=== PATIENT | female | born 1975 | race Caucasian/White ===

== ENCOUNTER 2017-11-22 08:47 | Outpatient (CLI) | payer BC ==
[2017-11-22 09:54] LABS: #Basophils 0.1 thou/uL (0.0-0.2); #Eosinphils 0.1 thou/uL (0.0-0.7); #Lymphocytes 2.2 thou/uL (1.20-3.40); #Monocytes 0.5 thou/uL (0.11-0.59); #Neutrophils 4.1 thou/uL (1.40-6.50); %Basophils 1.3 % (0.0-1.0); %Eosinophils 1.3 % (0.0-10.0); %Lymphocytes 31.7 % (21.0-51.0); %Monocytes 6.9 % (0.0-10.0); %Neutrophils 58.8 % (42.0-75.0); Hemoglobin 12.8 g/dL (12.0-16.0); Mean Corpuscular HGB CONC 33.5 g/dL (32.0-36.0); Mean Corpuscular Hemoglobin 27.9 pg (27.0-31.0); Mean Corpuscular Volume 83.5 fl (81.0-99.0); Mean Platelet Volume 7.2 fL (7.4-10.4); Platelet Count 251 thou/uL (130-400); RBC Distribution Width 11.8 % (11.5-14.5)
[2017-11-22 10:06] LABS: BHCG - Serum Negative (NEGATIVE); Pregs Control Background? CLEAR/WHITE (CLR/WHITE); Pregs Control Bar Appear? YES (CONTROL BAR)
[2017-11-22 10:11] LABS: Anion Gap 11 mmol/L (10-20); BUN (Urea Nitrogen) 16 mg/dL (7.0-18.7); Calc. Creatinine Clearance 0 mL/min (70-130); Calcium 9.4 mg/dL (7.8-10.44); Carbon Dioxide 27 mmol/L (22-29); Chloride 102 mmol/L (98-107); Estimated GFR-MDRD 85; Glucose 101 mg/dL (70-105); Potassium 4.4 mmol/L (3.5-5.1); Sodium 136 mmol/L (136-145)
== END 2017-11-22 08:48 | disposition home or self-care (01) ==
LOC: LABBT 08:47
PROVIDERS: ATTEND Specialist
DX: Z01.812 Encounter for preprocedural laboratory examination (principal); K64.4 Residual hemorrhoidal skin tags; K64.8 Other hemorrhoids
CPT/HCPCS: 80048; 84703; 85025

== ENCOUNTER 2017-11-27 07:01 | Day surgery (SDC) | payer BC ==
[2017-11-22 09:12] VITALS: BMI 36.6
[2017-11-27] MEDS ORDERED: Ketorolac Tromethamine 30 MG/ML VIAL ONE (07:30)
[2017-11-27] MEDS ORDERED: cefOXitin 2 GM, Syringe 1 ML in Sterile Water 10 ML SLOW IVP ONE (07:45)
[2017-11-27] MEDS ORDERED: Lidocaine 2% w/Epinephrine 1:200K 20 ML VIAL ONE (08:56)
[2017-11-27] MEDS ORDERED: Lidocaine 2% Jelly 5 ML TUBE ONE (08:56)
[2017-11-27] MEDS ORDERED: Bupivacaine 0.25% HCL 30 ML VIAL ONE (08:56)
[2017-11-27] MEDS ORDERED: Fentanyl 100 MCG/2 ML VIAL ONE (09:06)
[2017-11-27] MEDS ORDERED: Midazolam HCl 2 mg/2 ml Vial ONE (09:06)
[2017-11-27] MEDS ORDERED: Metoclopramide HCl 10 MG/2 ML VIAL ONE (12:57)
[2017-11-27] MEDS ORDERED: Ondansetron HCl/PF 4 MG/2 ML Vial ONE (12:57)
[2017-11-27] MEDS ORDERED: diphenhydrAMINE 50 MG/ML VIAL ONE (12:57)
[2017-11-27] MEDS ORDERED: Propofol 200 MG/20 ML VIAL ONE (12:57)
[2017-11-27] MEDS ORDERED: Dexamethasone 20 MG/5 ML VIAL ONE (12:57)
[2017-11-27] MEDS ORDERED: Lidocaine 1% PF 5 ML VIAL ONE (12:57)
--- NOTE | 2017-11-27 13:29 | OP ---
DATE OF PROCEDURE: 11/27/2017 PREOPERATIVE DIAGNOSIS: Internal/external hemorrhoids. POSTOPERATIVE DIAGNOSIS: Internal/external hemorrhoids. OPERATION PERFORMED: A 3 column open hemorrhoidectomy. SURGEON: Dr. Sony Fenton ANESTHESIA: General endotracheal. INDICATIONS: The patient is a 42-year-old white female. She presents with internal/external hemorrh oids. OPERATIVE PROCEDURE IN DETAIL: Informed consent was obtained. The patient taken to the operating ro om where general endotracheal anesthesia was obtained with the patient in supine position. She was p laced in dorsal lithotomy using candy cane stirrups. Perianal area was prepped with Betadine and tatiana ped in sterile fashion. Local anesthetic was infiltrated in a 4 quadrant intersphincteric fashion. The local anesthetic used was a combination of lidocaine and Marcaine with epinephrine. A digital in visible examination was performed. There were findings consistent with hemorrhoidal disease was alchidi johnson known and no other abnormalities noted. There were hemorrhoidal complexes noted at the 12 o'cloc k, the 5 o'clock and 8 o'clock radians. The procedure performed at age radian was the same. The complex was grasped with an Allis clamp. Ad ditional local anesthetic was infiltrated. A young shaped incision was created externally and diego ied internally over the sphincter. The hemorrhoidal tissue was dissected internally using the LigaSu re device. The specimen was removed. There were no abnormalities visualized of any these three area s. The defect was then closed using a running locking suture of 3-0 Vicryl. Gelfoam with lidocaine jelly was placed internally. Before closing, it was ensured that each area was hemostatic and each defect was well closed. A dry gauze dressing was placed externally. Mesh pants were placed. There were no complications. The pat ient tolerated the procedure well and was taken to recovery room in stable condition.
== END 2017-11-27 13:28 | disposition home or self-care (01) ==
LOC: SDC 07:01
PROVIDERS: ATTEND Specialist
PROC: 06BY0ZC Excision of Hemorrhoidal Plexus, Open Approach (ICD-10-PCS; principal; 2017-11-27)
DX: K64.8 Other hemorrhoids (principal); K64.4 Residual hemorrhoidal skin tags; N81.6 Rectocele; Z88.0 Allergy status to penicillin; Z98.890 Other specified postprocedural states
CPT/HCPCS: A4216; J0131; J0694; J1885; J2250; J3010; S0020

== ENCOUNTER 2017-12-01 22:32 | Emergency (ER) | payer BC ==
[2017-12-01 23:26] LABS: #Basophils 0.1 thou/uL (0.0-0.2); #Eosinphils 0.1 thou/uL (0.0-0.7); #Lymphocytes 2.3 thou/uL (1.20-3.40); #Monocytes 0.4 thou/uL (0.11-0.59); %Basophils 1.1 % (0.0-1.0); %Eosinophils 1.9 % (0.0-10.0); %Lymphocytes 33.1 % (21.0-51.0); %Monocytes 6.1 % (0.0-10.0); %Neutrophils 57.7 % (42.0-75.0); Mean Corpuscular HGB CONC 34.6 g/dL (32.0-36.0); Mean Corpuscular Hemoglobin 28.8 pg (27.0-31.0); Mean Corpuscular Volume 83.3 fl (81.0-99.0); Mean Platelet Volume 7.9 fL (7.4-10.4); Platelet Count 198 thou/uL (130-400); RBC Distribution Width 11.7 % (11.5-14.5); Red Blood Cell (RBC) Count 4.16 mill/uL (4.20-5.40)
[2017-12-01 23:32] LABS: INR-International Normal Ratio 0.9; Prothrombin Time 12.7 SEC (12.0-14.7)
[2017-12-01] MEDS ORDERED: Lidocaine Viscous Sol 2% 15 ml UD Cup ONE (23:44)
[2017-12-01 23:48] LABS: ALT (SGPT) 24 U/L (8-55); AST (SGOT) 17 U/L (5-34); Albumin 3.7 g/dL (3.5-5.0); Alkaline Phosphatase 43 U/L (40-150); Anion Gap 13 mmol/L (10-20); BUN (Urea Nitrogen) 15 mg/dL (7.0-18.7); Bilirubin, Total 0.3 mg/dL (0.2-1.2); Calc. Creatinine Clearance 0 mL/min (70-130); Calcium 8.7 mg/dL (7.8-10.44); Carbon Dioxide 22 mmol/L (22-29); Chloride 105 mmol/L (98-107); Estimated GFR-MDRD 86; Glucose 117 mg/dL (70-105); Potassium 4.7 mmol/L (3.5-5.1); Protein, Total 6.7 g/dL (6.0-8.3); Sodium 135 mmol/L (136-145)
== END 2017-12-02 01:14 | disposition home or self-care (01) ==
LOC: ERS 22:32
DX: K91.840 Postprocedural hemorrhage of a digestive system organ or structure following a digestive system procedure (principal); K62.5 Hemorrhage of anus and rectum; D50.0 Iron deficiency anemia secondary to blood loss (chronic)
CPT/HCPCS: 80053; 85025; 85610; 86850; 86900; 86901; 99283

== ENCOUNTER 2018-10-15 09:20 | Outpatient (CLI) | payer BC ==
[2018-10-15 11:02] LABS: Hemoglobin 11.9 g/dL (12.0-16.0); Mean Corpuscular HGB CONC 33.5 g/dL (32.0-36.0); Mean Corpuscular Volume 80.4 fL (78.0-98.0); Mean Platelet Volume 7.9 fL (7.4-10.4); Platelet Count 264 thou/uL (130-400); RBC Distribution Width 12.3 % (11.5-14.5); Red Blood Cell (RBC) Count 4.43 mill/uL (4.20-5.40); White Blood Cell (WBC) Count 6.5 thou/uL (4.8-10.8)
[2018-10-15 11:11] LABS: BHCG - Serum Negative (NEGATIVE); Pregs Control Background? CLEAR/WHITE (CLR/WHITE); Pregs Control Bar Appear? YES (CONTROL BAR)
== END 2018-10-15 09:21 | disposition home or self-care (01) ==
LOC: LABBT 09:20
PROVIDERS: ATTEND Obstetrics & Gynecology
DX: Z01.812 Encounter for preprocedural laboratory examination (principal); N39.3 Stress incontinence (female) (male)
CPT/HCPCS: 84703; 85027; 86850; 86900; 86901

== ENCOUNTER 2018-10-16 09:30 | Observation (INO) | payer BC ==
[2018-10-15 09:28] VITALS: BMI 41.1
--- NOTE | 2018-10-15 18:38 | HP ---
REASON FOR ADMISSION: Stress urinary incontinence. SCHEDULED PROCEDURES: Mid urethral sling with Advantage Fit and cystourethroscopy. HISTORY OF PRESENT ILLNESS: Ms. Richard is a 42-year-old well known to my practice for many years. She has stress incontinence by history and exam, and desires surgical management. GLOBAL SECURITY ARCHITECT HISTORY: x5. SAB x1. No history of dysplasia or STDs. The patient reports that she leaks urine when coughs, sneeze, or with intercourse. She has no nocturia. MEDICAL HISTORY: None. SURGICAL HISTORY: Stapled hemorrhoidectomy by Dr. Fenton. ALLERGIES: NONE. MEDICATIONS: Melatonin. SOCIAL HISTORY: Denies tobacco, alcohol, or IV drug use. FAMILY HISTORY: Noncontributory. REVIEW OF SYSTEMS: Noncontributory. PHYSICAL EXAMINATION: GENERAL: White female, 5 foot 5, 239, BMI 40. Blood pressure 122/90. HEENT: Within normal limits. LUNGS: Clear to auscultation bilaterally. HEART: Regular rate and rhythm. ABDOMEN: Soft and nontender. No rebound or guarding. PELVIC: Vulva without lesions. the patient has a hypermobile urethra with minimal cystocele and rectocele present. Cervix is parous. Uterus is anteverted, 4 to 6 weeks size. Adnexa, no masses bilaterally. IMPRESSION: History and exam consistent with pure stress incontinence, status post stapled hemorrhoidectomy. PLAN: Discussed with the patient options. We will proceed with mid urethral sling with [employer]. The patient understands risks and benefits of procedure including bleeding, infection, persistence of stress incontinence, de winifred urge incontinence, erosion, and prolonged catheterization. The patient gives verbal and written informed consent for procedure. We will administer appropriate antibiotic and DVT prophylaxis. Job ID: [id number]
[2018-10-16] MEDS ORDERED: CEFAZOLIN 2 GM/50 ML BAG ONE (09:53)
[2018-10-16] MEDS ORDERED: Lidocaine 1% w/Epinephrine 1:100K 30 ML VIAL ONE (10:19)
[2018-10-16] MEDS ORDERED: Fentanyl 100 MCG/2 ML VIAL ONE ×2 (10:30→12:11)
[2018-10-16] MEDS ORDERED: Meperidine HCl/PF 25 MG/ML VIAL SLOW IVP PRN (11:30)
[2018-10-16] MEDS ORDERED: Promethazine HCl 25 MG/ML VIAL IM PRN ×2 (11:30→13:34)
[2018-10-16] MEDS ORDERED: Promethazine HCl 25 MG/ML VIAL SLOW IVP PRN (11:30)
[2018-10-16] MEDS ORDERED: Ondansetron HCl/PF 4 MG/2 ML Vial IVP PRN (11:30)
[2018-10-16] MEDS ORDERED: HYDROcodone/Acetaminophen 10/325 mg Tablet PO PRN ×2 (13:34)
[2018-10-16] MEDS ORDERED: Morphine 2 MG/ML SYRINGE SLOW IVP PRN (13:34)
[2018-10-16] MEDS ORDERED: Morphine 10 MG/ML VIAL SLOW IVP PRN (13:34)
[2018-10-16] MEDS ORDERED: Simethicone Chewable 80 MG TAB PO PRN (13:34)
[2018-10-16] MEDS ORDERED: Zolpidem Tartrate 5 MG TAB PO PRN (13:34)
[2018-10-16] MEDS ORDERED: Ondansetron PF 4 MG/2 ML Vial IVP PRN (13:34)
[2018-10-16] MEDS ORDERED: diphenhydrAMINE 25 MG CAP PO PRN (13:34)
[2018-10-16] MEDS: Sodium Chloride 0.9% 1,000 ML IV SCH ×2 (13:45→19:17)
[2018-10-16] MEDS: Ketorolac Tromethamine 30 MG/ML VIAL IVP SCH ×2 (14:55→20:52)
--- NOTE | 2018-10-16 15:30 | OP ---
DATE OF PROCEDURE: 10/16/2018 PREOPERATIVE DIAGNOSIS: Stress urinary incontinence. POSTOPERATIVE DIAGNOSIS: Stress urinary incontinence. PROCEDURE PERFORMED: Midurethral sling with Advantage Fit and cystourethroscopy. HAND SHOE CUTTER SURGEON: Nelli Dahl D.O. ANESTHESIA: General endotracheal. ESTIMATED BLOOD LOSS: 50 mL. COMPLICATIONS: None. MEDICATIONS: Ancef and gentamicin preoperatively. DRAINS: Bhatia to gravity. OPERATIVE FINDINGS: 1. No evidence of bladder injury in cystourethroscopy at the end of the procedure. 2. Midurethral tension-free sling placement. 3. Hemostasis, clear urine. COUNTS: Correct at the end of the procedure. DISPOSITION: Recovery room in good condition. DESCRIPTION OF PROCEDURE: After obtaining appropriate informed consent, the patient was taken to the operating room where general endotracheal anesthesia was achieved without difficulty. The patient was prepped and draped in dorsal lithotomy position in Jordan stirrups. Legs were rotated approximately 15 degrees. Bladder was drained of clear urine. The midline of the symphysis pubis was noted and 2-cm right and left of this, 30 mL of normal saline was injected into the space of Retzius. Once this was done, a 1.5 cm segment of the mid urethra was isolated with Allis clamps and infiltrated underneath the vaginal mucosa with 10 mL of lidocaine with epinephrine. A 15 blade was used to made an incision and Metzenbaum scissors were used to dissect laterally to the level of the symphysis pubis on each side. Bhatia catheter was removed after deflating the bulb and the catheter stylus was placed in the catheter. It was taped to the patient's left leg and the left trocar of the Advantage Fit sling was placed through the vaginal incision up to the level of the symphysis pubis on the left and hugging the backside of the symphysis pubis from the pubic arch up to the pubic ramus and coming through the skin in the usual manner. The catheter was then taped to the patient's right thigh and the identical procedure carried out on the patient's right. Catheter was removed. The cystourethroscopy was carried out, which revealed no evidence of bladder injury from the mid urethra sling trocar placement. Photodocumentation was obtained. Bilateral ureters were identified, noted to be effluxing urine. The urethra was inspected and no evidence of injury to the urethra was noted. Cystoscope was removed. Bladder was drained and Bhatia catheter replaced. The sling was then tensioned up against the mid-urethra with a Mi between the mid-urethra with the Bhatia and tape. Once the midurethral sling was pulled up snugly against the Mi, the tab in middle of the sling was cut and removed from the vagina, and the plastic introduction sleeves were removed intact. Excess midurethral sling material was trimmed at the level of symphysis pubis bilaterally. Inspection revealed the sling to be without twisting and to be without tension against the level of the mid urethra. Vaginal incision through the vaginal mucosa was closed using running continuous 2-0 Vicryl suture. Pressure was held up against the pubic rami on each side from the transvaginal area for approximately a minute and a half with sponge sticks. A moistened Kerlix was placed in the vagina and Dermabond was applied to the 2 suprapubic trocar sites. The bladder was drained. The patient was awakened and extubated to recovery room in good condition. Job ID: [id number]
[2018-10-16] MEDS ORDERED: Dexamethasone 20 MG/5 ML VIAL ONE (18:46)
[2018-10-16] MEDS ORDERED: Glycopyrrolate 0.2 MG/ML 5 ML SYRINGE ONE (18:46)
[2018-10-16] MEDS ORDERED: Lidocaine 1% PF 5 ML VIAL ONE (18:46)
[2018-10-16] MEDS ORDERED: Ondansetron PF 4 MG/2 ML Vial ONE (18:46)
[2018-10-16] MEDS ORDERED: Ketorolac Tromethamine 30 MG/ML VIAL ONE (18:46)
[2018-10-16] MEDS ORDERED: PROPOFOL 200 MG/20 ML VIAL ONE (18:46)
[2018-10-17] MEDS: Ketorolac Tromethamine 30 MG/ML VIAL IVP SCH ×2 (02:21→08:25)
[2018-10-17 06:18] LABS: Hemoglobin 11.1 g/dL (12.0-16.0); Mean Corpuscular HGB CONC 34.3 g/dL (32.0-36.0); Mean Corpuscular Hemoglobin 27.7 pg (27.0-31.0); Mean Corpuscular Volume 80.7 fL (78.0-98.0); Mean Platelet Volume 7.4 fL (7.4-10.4); Platelet Count 285 thou/uL (130-400); RBC Distribution Width 12.2 % (11.5-14.5)
[2018-10-17] MEDS: Sodium Chloride 0.9% 1,000 ML IV SCH ×2 (07:58→08:08)
--- NOTE | 2018-10-17 10:19 | PRG ---
DATE OF SERVICE: 10/17/2018 TIME OF SERVICE: 0800 hours. SUBJECTIVE: Ms. Richard is resting comfortably this morning. She has no complaints. She states her pain is minimal at best. She is currently drinking water after having her Bhatia discontinued that approximately 0600 hours. She does not feel urge to void at this time. The patient reports that oftentimes when she is sitting, she does not have an urge to void, but when standing, she has more urge. Ambulation was encouraged. OBJECTIVE: VITAL SIGNS: Temperature 98.1, T-max 98.3, pulse 89, respirations 20, and blood pressure 113/57. Urine output; the patient has had 2900 mL Bhatia urine output. Her Bhatia was discontinued yesterday evening. After approximately 3 hours, she voided 350 mL with approximately 350 to 400 mL remaining noted on bladder scan. As it was already 1800 hours, decision was made just to replace Bhatia and let her bladder rest overnight. HEART: Regular rate and rhythm. LUNGS: Clear to auscultation bilaterally. ABDOMEN: Soft and nontender. Suprapubically, there is no bruising or bleeding noted. Her perineum is dry. EXTREMITIES: No clubbing, cyanosis, or edema. IMPRESSION: 1. Doing well, status post midurethral sling. 2. Elevated PVRs x1 yesterday. PLAN: Discontinue Bhatia. Check void volumes and postvoid residuals today. Begin intermittent self-catheterization teaching this a.m. and possible noon discharge pending on results from the voiding trials. Job ID: [id number]
[2018-10-17 11:52] VITALS: BP 108/58; TEMP 97.9
--- NOTE | 2018-10-17 16:38 | DIS ---
DATE OF ADMISSION: 10/16/2018 DATE OF DISCHARGE: 10/17/2018 TIME OF SERVICE: 1330 hours. The patient is doing well this morning. After discontinuing Bhatia, she has had postvoid residuals of less than 50 x2, good void volumes. She has no complaints. Exam is unchanged from morning progress note. She will be discharged home, will follow up at [facility] in 4 weeks. DISCHARGE MEDICATIONS: [id number] ibuprofen only. Job ID: [id number]
== END 2018-10-17 14:15 | disposition home or self-care (01) ==
LOC: SDC 09:30 → 3SE 11:52
PROVIDERS: ADMIT Obstetrics & Gynecology; ATTEND Obstetrics & Gynecology
PROC: 0TSC0ZZ Reposition Bladder Neck, Open Approach (ICD-10-PCS; principal; 2018-10-16)
DX: N39.3 Stress incontinence (female) (male) (principal); Z88.1 Allergy status to other antibiotic agents; Z79.899 Other long term (current) drug therapy; Z98.890 Other specified postprocedural states
CPT/HCPCS: 36415; 85027; 96361; 96374; 96375; 96376; C1781; G0378; J1100; J1885; J2001; J2405; J2704; J3010